=== PATIENT | female | born 1945 | race Caucasian/White ===

== ENCOUNTER 2016-08-21 14:56 | Observation (INO) | payer OTHER ==
[~2016-08-21] VITALS: Ht 157.5 cm; Wt 88.9 kg
[~2016-08-21 14:56] MED LIST: ASPIR-TRIN325 M1 PO; Ativan PO; CEFTIN250 MG PO; Flonase BOTH NARES; Tylenol Regular Stre PO; Zocor PO
[2016-08-21 15:44] LABS: HEMATOCRIT 44.9 % (36.0-46.0); MCH 29.6 PG (29.0-34.0); MCHC 31.8 G/DL (30.0-36.0); MEAN PLAT.VOLUME 11.7 uM^3 (9.5-12.4); PLATELET COUNT 208 K/uL (156-360); RBC DIS.WIDTH-CV 13.6 % (11.8-14.6); RBC DIS.WIDTH-SD 46.5 % (39-53); RED BLOOD COUNT 4.83 M/uL (3.80-5.20); WHITE BLOOD COUNT 8.5 K/uL (4.1-10.2)
[2016-08-21 15:58] LABS: CHLORIDE 109 mEq/L (99-109); POTASSIUM 4.2 mEq/L (3.7-5.4); SODIUM 145 mEq/L (136-147)
[2016-08-21 16:00] LABS: GLUCOSE 88 mg/dL (70-99)
[2016-08-21 16:02] LABS: ANION GAP 13 MEQ/L (2-14)
[2016-08-21 16:04] LABS: GFR ESTIMATE (CALCULATED) 58 mL/min/
[2016-08-21 16:05] LABS: UREA NITROGEN (BUN) 18 mg/dL (9-23)
[2016-08-21] MEDS ORDERED: SIMVASTATIN20 MG PO (17:32)
[2016-08-21] MEDS ORDERED: RAMIPRIL2.5 MG PO (17:33)
[2016-08-21] MEDS ORDERED: VITAMIN D31000 UNIT PO (17:34)
[2016-08-21 18:56] LABS: HDL CHOLESTEROL 52 MG/DL (Desirable>=50); LDL CHOLESTEROL 73 mg/dL (Desirable<100); NON-HDL CHOLESTEROL 98 mg/dL (Desirable<160); SAMPLE HEMOLYSIS CHECK 0; SAMPLE ICTERIC CHECK 0; SAMPLE LIPEMIA CHECK 0; TOTAL CHOLESTEROL 150 mg/dL (Desirable<200); TRIGLYCERIDES 125 MG/DL (Normal: <150)
[2016-08-21 19:32] VITALS: BP 134/82
[2016-08-21 23:09] LABS: Estimated Average Glucose 114 mg/dL (70-123); HEMOGLOBIN A1c (GLYCOHEMOGLOB) 5.6 % HGB (Below 5.7)
[2016-08-22 00:30] VITALS: BP 121/77
[2016-08-22 04:53] VITALS: BP 111/69
[2016-08-22 07:29] VITALS: BP 116/77
[2016-08-22 11:56] VITALS: BP 127/77
== END 2016-08-22 14:25 | disposition home or self-care (01) ==
LOC: EME 14:56 → EDOF 18:07 → 5WEST 18:07
PROVIDERS: Hospitalist
DX: G45.9 Transient cerebral ischemic attack, unspecified (principal); Z86.73 Personal history of transient ischemic attack (TIA), and cerebral infarction without residual deficits; I10 Essential (primary) hypertension; F41.9 Anxiety disorder, unspecified; E78.5 Hyperlipidemia, unspecified; F32.9 Major depressive disorder, single episode, unspecified
CPT/HCPCS: 70450; 70551; 71020; 80048; 80061; 83036; 85027; 93005; 93880; 99281; 99285; G0378; J2060